=== PATIENT | male | born 1955 | race Caucasian/White ===

== ENCOUNTER 2017-04-07 08:17 | Emergency (ER) | payer MEDICAID ==
[~2017-04-07] VITALS: Ht 193 cm; Wt 78.2 kg
[2017-04-07] MEDS ORDERED: HYDROcodone/APAP 5/325 TABLET PO ONE (09:30)
[2017-04-07 09:35] LABS: BASOPHILS # (AUTO) 0.03 x10^3/uL (0-0.1); BASOPHILS % (AUTO) 1 % (0-1); EOSINOPHILS # (AUTO) 0.16 x10^3/uL (0-0.4); EOSINOPHILS % (AUTO) 3 % (1-7); LYMPHOCYTES % (AUTO) 14 % (22-44); MD NO; MEAN CORPUSCULAR HEMOGLOBIN 34.9 pg (27.5-34.5); MEAN CORPUSCULAR HGB CONC 33.9 g/dL (33.2-36.2); MEAN CORPUSCULAR VOLUME 102.9 fL (81-97); MEAN PLATELET VOLUME 8.3 fL (7.4-10.4); MONOCYTES # (AUTO) 0.79 x10^3/uL (0.2-0.8); MONOCYTES % (AUTO) 16 % (2-9); NEUTROPHILS # (AUTO) 3.37 x10^3/uL (1.8-6.8); NEUTROPHILS % (AUTO) 67 % (42-75); PLATELET COUNT 240 x10^3/uL (130-400); RED BLOOD COUNT 4.36 x10^6/uL (4.38-5.82); RED CELL DISTRIBUTION WIDTH 13.5 % (9.4-14.8)
[2017-04-07] MEDS ORDERED: HYDROcodone/APAP 5/325 TABLET ONE (09:38)
[2017-04-07 09:56] LABS: ALBUMIN 3.9 g/dL (3.4-5.0); CALCIUM 8.3 mg/dL (8.5-10.1)
[2017-04-07 09:59] LABS: ANION GAP 7 mmol/L (5-15); CHLORIDE 108 mmol/L (98-107); TROPONIN I < 0.015 ng/mL (0.000-0.045)
[2017-04-07 10:04] LABS: CREATININE 0.83 mg/dL (0.7-1.3)
[2017-04-07] MEDS ORDERED: OMNIPAQUE 350 MG/ML, 75ML BOTTLE ONE (10:34)
[2017-04-07 11:38] VITALS: BP 130/76
== END 2017-04-07 11:49 | disposition home or self-care (01) ==
LOC: ED 09:57
DX: J44.1 Chronic obstructive pulmonary disease with (acute) exacerbation (principal); M54.6 Pain in thoracic spine
CPT/HCPCS: 36415; 71045; 71260; 80048; 82040; 83605; 84484; 85025; 93005; 99285; Q9967